=== PATIENT | female | born 1960 | race African-American/Black ===

== ENCOUNTER → 2017-01-10 | Day surgery (SDC) | payer OTHER ==
--- NOTE | 2017-01-11 16:11 | PATH ---
Cytology Non-Gynecological Report Patient Name: LEXII [facility]. Rec. #: [id number] /Age/Gender: 1960 (Age: 56) / F Account: [id number] Location: RADIOLOGY Taken: 01/10/2017 Received: 01/10/2017 Reported: 01/11/2017 Physicians: Hortencia Pedro M.D. Specimen(s) Received LEFT THYROID FNA Clinical History Left thyroid nodule, 4.58 x 2.53 x 4.41 cm Final Diagnosis THYROID GLAND, LEFT LOBE, US GUIDED FINE NEEDLE ASPIRATION BIOPSY: SATISFACTORY FOR EVALUATION. NO MALIGNANT CELLS IDENTIFIED. CONSISTENT WITH NODULAR GOITER WITH CYSTIC CHANGE (BENIGN FOLLICULAR NODULE, B[place] CATEGORY II, BENIGN), SEE COMMENT. Comment: The smears and the cell block show clusters of bland appearing follicular epithelial cells arranged in mixed micro-and microfollicles and flat sheets. Macrophages are present indicative of cystic change. Colloid is present. Electronically Signed True Moreno M.D. Gross Description Received are four air dried smears, four smears in 95% alcohol, and 20 cc of bloody fluid in formalin. Four diff-quik stained slides, four Pap stained slides and one cell block are made.
== END | disposition home or self-care (01) ==
LOC: JRADIR 08:58
PROVIDERS: ATTEND Internal Medicine Endocrinology, Diabetes & Metabolism
PROC: 0GBG3ZX Excision of Left Thyroid Gland Lobe, Percutaneous Approach, Diagnostic (ICD-10-PCS; principal; 2017-01-10)
PROC: BG44ZZZ Ultrasonography of Thyroid Gland (ICD-10-PCS; 2017-01-10)
DX: E04.1 Nontoxic single thyroid nodule (principal)
CPT/HCPCS: 76942; 88173; 88305-TC

== ENCOUNTER → 2023-02-02 | Day surgery (SDC) | payer OTHER | END | disposition home or self-care (01) | LOC: JRADIR 09:37 | PROVIDERS: ATTEND Internal Medicine Endocrinology, Diabetes & Metabolism | PROC: 0G9G3ZX Drainage of Left Thyroid Gland Lobe, Percutaneous Approach, Diagnostic (ICD-10-PCS; principal; 2023-02-02) | DX: E04.1 Nontoxic single thyroid nodule (principal) | CPT/HCPCS: 10005; 76942; 88173; 88305-TC ==

== ENCOUNTER 2023-02-18 14:07 | Emergency (ER) | payer OTHER ==
[2023-02-18 14:24] VITALS: BP 135/79; PULSE 70; RESP 16; TEMP 98; BMI 32.1
[2023-02-18] MEDS ORDERED: ACETAMINOPHEN 500 MG TABLET (FP) PO ONE (15:54)
[2023-02-18] MEDS ORDERED: ACETAMINOPHEN 500 MG TABLET (FP) ONE (16:13)
== END 2023-02-18 16:18 | disposition home or self-care (01) ==
LOC: JERFT 14:07
DX: M17.12 Unilateral primary osteoarthritis, left knee (principal)
CPT/HCPCS: 73562-TC-LT-FY; 99283-25